=== PATIENT | male | born 1995 | race Two or more races ===

== ENCOUNTER 2018-11-07 18:49 | Emergency (ER) | payer OTHER ==
[~2018-11-07] VITALS: Ht 177.8 cm; Wt 98.6 kg
[2018-11-07 19:21] VITALS: BP 122/76
== END 2018-11-07 19:51 | disposition home or self-care (01) ==
LOC: M ED 18:49
DX: S09.90XA Unspecified injury of head, initial encounter (principal); W00.0XXA Fall on same level due to ice and snow, initial encounter; Y92.149 Unspecified place in prison as the place of occurrence of the external cause; F17.210 Nicotine dependence, cigarettes, uncomplicated

== ENCOUNTER → 2018-11-12 | Outpatient (CLI) | payer OTHER ==
--- NOTE | 2018-11-12 10:23 | REP ---
Cervical spine age views: Vertebral body heights, interspacing alignment are normal. The facets are normally aligned. Prevertebral soft tissues are normal. There is no listhesis on flexion or extension. The odontoid view is unremarkable. There is no foraminal encroachment. Impression: Negative plain film study of the cervical spine. Electronically Signed by Michael Jones MD 11/12/2018 10:15 A
--- NOTE | 2018-11-12 10:24 | REP ---
Thoracic spine three views: There is mild scoliosis convex right in the upper thoracic spine and left in the lower thoracic spine, possibly positional. Vertebral body heights, interspacing alignment are normal. There are no compression deformities. There is no listhesis. The pedicles are unremarkable. Mineralization is normal. Impression: Scoliosis, possibly positional. Otherwise, negative thoracic spine. Electronically Signed by Michael Jones MD 11/12/2018 10:16 A
--- NOTE | 2018-11-12 17:05 | REP ---
Lumbar spine five views: There is mild scoliosis convex right, possibly positional. Vertebral body heights, interspacing alignment are normal. There are no compression deformities. There is no listhesis. There is unilateral spondylolysis of L5 on the right. Mineralization is normal. The pedicles and facets are unremarkable. Sacroiliac articulations are well. Impression: Mild scoliosis, possibly positional. Unilateral L5 spondylolysis on the right. No spondylolisthesis. Otherwise, negative lumbar spine. Electronically Signed by Michael Jones MD 11/12/2018 04:56 P
== END ==
LOC: M RAD 08:34
PROVIDERS: ATTEND Surgery
DX: M54.9 Dorsalgia, unspecified (principal); M41.84 Other forms of scoliosis, thoracic region; M43.06 Spondylolysis, lumbar region; M41.86 Other forms of scoliosis, lumbar region